=== PATIENT | male | born 1950 | race Caucasian/White ===

== ENCOUNTER 2016-12-08 10:15 | Emergency (ER) | payer OTHER ==
[~2016-12-08] VITALS: Ht 175.3 cm; Wt 86.2 kg
--- NOTE | 2016-12-08 10:32 | ED GI/GU/ABDOMINAL COMPLAINT ---
History of Present Illness General Chief Complaint: Abdominal Pain/Flank Pain Stated Complaint: KIDNEY STONES Source: patient, old records Exam Limitations: no limitations Vital Signs & Intake/Output Vital Signs & Intake/Output Vital Signs Date Time Temp Pulse Resp B/P Pulse O2 O2 Flow FiO2 Ox Delivery Rate 12/08 1240 97.7 88 18 140/78 95 Room Air 12/08 1130 97 12/08 1020 96.8 73 18 142/81 97 Room Air Allergies Coded Allergies: NO KNOWN ALLERGIES (12/08/16) Reconcile Medications Amlodipine Besylate 10 MG TABLET 1 TAB PO DAILY HEART (Reported) Doxazosin Mesylate 2 MG TABLET 1 TAB PO QPM UNKNOWN (Reported) Lisinopril 40 MG TABLET 1 TAB PO DAILY HEART (Reported) Ondansetron (Zofran Odt) 4 MG TAB.RAPDIS 1 TAB SL TID PRN NAUSEA Rosuvastatin Calcium (Crestor) 10 MG TABLET 1 TAB PO DAILY CHOLESTEROL ( Reported) Triamcinolone Acetonide 0.1 % OINT...G. 1 MEKHI TOP BID UNKNOWN (Reported) apply to affected area(s) Tylenol With Codeine (Tylenol With Codeine #3 Tablet) 300 MG-30 MG TABLET 1-2 TAB PO Q4-6 PRN PRN PAIN Triage Note: 66 Y/O MALE C/O L FLANK PAIN SINCE 729. HX KIDNEY STONES AND STATES THIS FEELS SIMLIAR. +NAUSEA. TOOK 3 ASPIRIN WITH NO RELIEF. Triage Nurses Notes Reviewed? yes HPI: L side flank and back pain,sudden onset at 0730, radiating to the front, severe, nausea. no vomiting. no fever. no urinary sx. no blood. hx of kidney stones in the past,feel same. flank pain is 2/10, R abd camilo is 7/10. aspirin x3 helped. last kidney stone was 2000. no sx over the last few days. (ADWOA VELOZ) Past History Travel History Traveled to [place] past 21 day No Medical History Any Pertinent Medical History? see below for history Neurological: NONE EENT: NONE Cardiovascular: NONE Respiratory: NONE Gastrointestinal: NONE Hepatic: NONE Renal: KIDNEY STONE Musculoskeletal: NONE Psychiatric: NONE Endocrine: NONE Blood Disorders: NONE Cancer(s): NONE LABEL PRINTER/Reproductive: NONE Surgical History Surgical History: non-contributory Psychosocial History What is your primary language Iraqi Tobacco Use: Never used Family History Hx Contributory? No (ADWOA VELOZ) Review of Systems Review of Systems Constitutional: Reports: see HPI. EENTM: Reports: no symptoms. Respiratory: Reports: no symptoms. Cardiovascular: Reports: no symptoms. GI: Reports: see HPI. Genitourinary: Reports: see HPI. Musculoskeletal: Reports: no symptoms. Skin: Reports: no symptoms. Neurological/Psychological: Reports: no symptoms. Hematologic/Endocrine: Reports: no symptoms. Immunologic/Allergic: Reports: no symptoms. All Other Systems: Reviewed and Negative (ADWOA VELOZ) Physical Exam Physical Exam Gastrointestinal: normal bowel sounds, soft, non-tender, no organomegaly Comments: Well-developed well-nourished no apparent distress. HEENT: Atraumatic, extraocular motion intact Neck: Supple, no lymphadenopathy Back: Nontender. Positive left-sided CVA tenderness Heart: Regular rhythm Respiratory: No respiratory distress clear to auscultation Extremities: No edema, full range of motion Neuro: Alert and oriented x3 Psych: Mood affect normal, normal memory normal judgment. Skin: Warm and dry, no rash on exposed skin Core Measures ACS in differential dx? No Severe Sepsis Present: No Septic Shock Present: No (ADWOA VELOZ) Progress Differential Diagnosis: AAA, AMI, appendicitis, biliary colic, bowel obstruction , colon cancer, cholecystitis, diverticulitis, epididymitis, esophageal varices, gastritis, hepatitis, hernia, hemorrhoids, ischemic bowel, inflamm bowel dis, Kay-Keeley tear, orchitis, pancreatitis, prostatitis, peptic ulcer, PUD/GERD, perforated viscous, pyelonephritis, SBO, STD, testicular torsion, ureterolithiasis, urinary retention, urethritis, UTI/pyelo Plan of Care: Orders Procedure Date/time Status Saline Lock 12/08 1034 Active CULTURE,URINE 12/08 1034 Active URINALYSIS 12/08 1034 Complete Laboratory Tests 12/08/16 1144: Urine Color KARLEE, Urine Clarity HAZY H, Urine pH 5.5, Ur Specific [place] >= 1.030, Urine Protein 100 H, Urine Ketones 15 H, Urine Nitrite NEG, Urine Bilirubin POS@ICTO H, Urine Urobilinogen 0.2, Ur Leukocyte Esterase TRACE H, Ur Microscopic SEDIMENT EXAMINED, Urine RBC PACKD H, Urine WBC RARE, Urine Crystals 3+ CA OX H, Urine Mucus MOD H, Urine Hemoglobin LARGE H, Urine Glucose NEG Microbiology 12/08 1144 URINE ROUT: Urine Culture - RECD Initial ED EKG: none Comments: Patient with history of kidney stones, has typical stone symptoms. Urine shows blood and calcium oxalate. He was given 30 mg of Toradol IV and a liter of fluids and 4 mg of Zofran IV for nausea and reevaluated multiple times. His pain is a 1 out of 10 left lower quadrant radiating into the groin region, he has no back or flank pain at this time. He feels well enough to be discharged home. He'll return with worsening symptoms. I do not feel as though he requires any imaging studies at this time or labs. We will treat him as a presumed kidney stone and urology follow-up is recommended if no better next few days or returning here. (ADWOA VELOZ) Departure Departure Disposition: HOME OR SELF CARE Condition: Stable Clinical Impression Primary Impression: Kidney stone on left side Referrals: SENTHIL MOON,JUDITH UNKNOWN (PCP/Family) Additional Instructions: Take pain medication as needed, Zofran as needed for nausea, to play fluids. Follow-up with urologist if you continue to have pain over the next few days and you have not passed the stone yet. Return with worsening fever, flulike illness, nausea vomiting or back pain. Return if you are unable to keep fluids down. Departure Forms: Customer Survey General Discharge Information Prescriptions: Current Visit Scripts Tylenol With Codeine (Tylenol With Codeine #3 Tablet) 1-2 TAB PO Q4-6 PRN PRN PAIN #20 TAB Ondansetron (Zofran Odt) 1 TAB SL TID PRN NAUSEA #10 TAB (ADWOA VELOZ) PA/[employer] PROGRAMMER ANALYST Co-Sign Statement Statement: ED Attending supervision documentation- [X] I saw and evaluated the patient. I have also reviewed all the pertinent lab results and diagnostic results. I agree with the findings and the plan of care as documented in the PA's/[employer] PROGRAMMER ANALYST's documentation. [] I have reviewed the ED Record and agree with the PA's/[employer] PROGRAMMER ANALYST's documentation. [] Additions or exceptions (if any) to the PAs/[employer] PROGRAMMER ANALYST's note and plan are summarized below: [] (MANDY FERRARO DO
[2016-12-08 12:40] VITALS: BP 140/78
[2016-12-08] MEDS ORDERED: AMLODIPINE BESY10 M1 PO (12:54)
[2016-12-08] MEDS ORDERED: LISINOPRIL40 M1 PO (12:54)
[2016-12-08] MEDS ORDERED: CRESTOR10 M1 PO (12:55)
[2016-12-08] MEDS ORDERED: DOXAZOSIN MESYLA2 M1 PO (12:55)
[2016-12-08] MEDS ORDERED: TRIAMCINOLONE A15 G3 TOP (12:55)
[2016-12-08] MEDS ORDERED: TYLENOL WITH C1 EACH PO (12:56)
[2016-12-08] MEDS ORDERED: ZOFRAN ODT4 M1 SL (12:56)
== END 2016-12-08 13:06 ==
LOC: ERH 10:15
DX: N20.0 Calculus of kidney (principal)
CPT/HCPCS: 81001; 87086; 87147; 96361; 96374; 96375; J1885; J2405